=== PATIENT | male | born 1990 | race Caucasian/White ===

== ENCOUNTER 2018-02-27 10:29 | Emergency (ER) | payer MEDICAID ==
[2018-02-27] MEDS: HYDROCODONE/APAP (5/325) TAB PO (11:34)
== END 2018-02-27 13:25 | disposition home or self-care (01) ==
LOC: FTE 10:29
DX: T65.891A Toxic effect of other specified substances, accidental (unintentional), initial encounter (principal); H10.211 Acute toxic conjunctivitis, right eye
CPT/HCPCS: 99283; Z7502